=== PATIENT | male | born 2000 | race Caucasian/White ===

== ENCOUNTER 2023-01-19 11:58 | Emergency (ER) | payer BC ==
[~2023-01-19] VITALS: Ht 175.3 cm; Wt 72.6 kg
[2023-01-19] MEDS ORDERED: MUPIROCIN1 G1 TOP (13:37)
[2023-01-19] MEDS ORDERED: TYLENOL325 MG (13:39)
== END 2023-01-19 13:48 | disposition home or self-care (01) ==
LOC: ER 11:58
DX: S90.811A Abrasion, right foot, initial encounter (principal); W26.8XXA Contact with other sharp object(s), not elsewhere classified, initial encounter; Y93.9 Activity, unspecified; Y92.9 Unspecified place or not applicable; Y99.9 Unspecified external cause status